=== PATIENT | female | born 1940 | race Caucasian/White ===

== ENCOUNTER 2018-07-07 08:36 | Outpatient (CLI) | payer MEDICARE ==
--- NOTE | 2018-07-07 09:34 | BD ---
BONE DENSITOMETRY USING DEXA: Date: 07/07/18 HISTORY: Postmenopausal screening for osteoporosis. FINDINGS: Lumbar Spine: BMD (g/cm2) L1 0.849 T-Score: -1.3 Z-Score: 1.0 L2 0.919 T-Score: -1.0 Z-Score: 1.5 L3 0.989 T-Score: -0.9 Z-Score: 1.7 L4 1.063 T-Score: 0.0 Z-Score: 2.7 L1-L4 0.957 T-Score: -0.8 Z-Score: 1.7 Femoral Neck: 0.518 T-Score: -3.0 Z-Score: -0.8 Total Femur: 0.691 T-Score: -2.1 Z-Score: -0.2 IMPRESSION: Osteoporosis. POS: [facility]
== END 2018-07-07 08:37 | disposition home or self-care (01) ==
LOC: BICMAMMO 08:36
PROVIDERS: ATTEND Internal Medicine Gastroenterology
DX: Z13.820 Encounter for screening for osteoporosis (principal); K21.0 Gastro-esophageal reflux disease with esophagitis; K44.9 Diaphragmatic hernia without obstruction or gangrene; M19.90 Unspecified osteoarthritis, unspecified site; M81.0 Age-related osteoporosis without current pathological fracture
CPT/HCPCS: 77080